=== PATIENT | male | born 1940 | race Caucasian/White ===

== ENCOUNTER → 2017-02-25 | Outpatient (CLI) | payer MEDICARE, OTHER ==
[~2017-02-25] MED LIST: ADVAIR 100-501 EACH INH; ALBUTEROL1.25 MG/3 INH; DULCOLAX STOOL100 MG PO; LEVOTHYROXINE75 MCG PO; NEURONTIN100 MG PO; NORVASC2.5 MG PO; PROSTATE THERA1 EACH PO; ULTRAM50 MG PO; VALSARTAN-HCTZ1 EAC2 PO; VITAMIN C1000 MG PO; XARELTO15 MG PO; XARELTO20 MG PO
== END | disposition disaster alternative care site (69) ==
LOC: GRAD 10:28
DX: M25.511 Pain in right shoulder (principal); M19.011 Primary osteoarthritis, right shoulder